=== PATIENT | female | born 2000 | race Caucasian/White ===

== ENCOUNTER 2025-07-06 12:43 | Emergency (ER) | payer BC ==
[2025-07-06] MEDS: Ketorolac 30 MG/ML SDV IM ONE (13:20)
== END 2025-07-06 15:27 | disposition home or self-care (01) ==
LOC: MW.ED 12:43
DX: S52.034A Nondisplaced fracture of olecranon process with intraarticular extension of right ulna, initial encounter for closed fracture (principal); V86.96XA Unspecified occupant of dirt bike or motor/cross bike injured in nontraffic accident, initial encounter
CPT/HCPCS: 73030; 73080; 73100; 73200; 73562; 99284; A9270; 99283